=== PATIENT | male | born 1970 | race Caucasian/White ===

== ENCOUNTER 2019-06-23 09:06 | Emergency (ER) | payer OTHER ==
[~2019-06-23] VITALS: Ht 167.6 cm; Wt 68.0 kg
[~2019-06-23 09:06] MED LIST: ACCUNEB0.63 MG/3 IH; ADVIL LIQUI-GE200 MG PO; APAP500; PERCOCET 5-3251 EACH PO; SANDOSTATI50 MCG/1 M IJ
[2019-06-23] MEDS ORDERED: ULTRAM 50MG TAB50 MG PO (09:42)
[2019-06-23] MEDS ORDERED: KEFLEX500 M1 PO (09:42)
[2019-06-23 10:06] VITALS: BP 163/114
== END 2019-06-23 10:09 | disposition home or self-care (01) ==
LOC: M.ERS 09:06
DX: K04.7 Periapical abscess without sinus (principal); J45.909 Unspecified asthma, uncomplicated; Z85.841 Personal history of malignant neoplasm of brain; Z98.890 Other specified postprocedural states; Z90.49 Acquired absence of other specified parts of digestive tract; Z88.1 Allergy status to other antibiotic agents; Z88.0 Allergy status to penicillin